=== PATIENT | female | born 1970 | race Caucasian/White ===

== ENCOUNTER 2016-06-22 10:34 | Emergency (ER) | payer OTHER ==
[~2016-06-22] VITALS: Ht 170.2 cm; Wt 56.0 kg
[~2016-06-22 10:34] MED LIST: LEVE250 PO; METH5SOL3 PO; XANA1TAB6 PO
[2016-06-22 10:37] VITALS: BP 135/93; PULSE 74; RESP 20; TEMP 97.8; O2SAT 99
[2016-06-22] MEDS ORDERED: LEVE500 PO (10:52)
[2016-06-22] MEDS ORDERED: METH10TA PO (10:52)
[2016-06-22] MEDS ORDERED: XANA1TAB2 PO (10:52)
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
[2016-06-22] MEDS ORDERED: HYDROmorphone HCL PF 1 MG/ML VIAL IM ONE (11:15)
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
[2016-06-22] MEDS ORDERED: IOHEXOL 350 MG/ML 10 ML VIAL (for RAD DIAG) IV ONE (14:04)
[2016-06-22 14:26] LABS: AUTOMATED NEUTROPHIL # 9.3 TH/MM3 (1.8-7.7); BASOPHIL % 0.1 % (0.0-2.0); EOSINOPHIL # 0.1 TH/MM3 (0-0.4); EOSINOPHIL % 0.5 % (0.0-4.0); HEMATOCRIT 34.9 % (35.0-46.0); HEMO FLAGS DIFF FINAL; LYMPH % 10.7 % (9.0-44.0); LYMPHOCYTE # 1.3 TH/MM3 (1.0-4.8); MEAN CELL VOLUME 83.1 FL (80.0-100.0); MEAN CORPUSCULAR HEMOGLOBIN 27.3 PG (27.0-34.0); MEAN CORPUSCULAR HGB CONC 32.8 % (32.0-36.0); MONO % 9.9 % (0.0-8.0); NEUT % 78.8 % (16.0-70.0); PLATELET COUNT 187 TH/MM3 (150-450); RED CELL DISTRIBUTION WIDTH 14.9 % (11.6-17.2); WHITE BLOOD COUNT 11.8 TH/MM3 (4.0-11.0)
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
[2016-06-22 14:49] LABS: POTASSIUM 4.5 MEQ/L (3.5-5.1)
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
[2016-06-22] MEDS ORDERED: PERC5TAB12 PO (16:54)
== END 2016-06-22 18:30 | disposition home or self-care (01) ==
LOC: NEPD 10:34
DX: S32.028A Other fracture of second lumbar vertebra, initial encounter for closed fracture (principal); V49.9XXA Car occupant (driver) (passenger) injured in unspecified traffic accident, initial encounter; M54.2 Cervicalgia; K21.9 Gastro-esophageal reflux disease without esophagitis; F25.9 Schizoaffective disorder, unspecified
CPT/HCPCS: 70450; 71010; 71260; 72072; 72100; 72125; 72131; 74177; 80048; 85025; 96372; 99284; J1170; L0484; L1050; Q9967